=== PATIENT | male | born 1955 | race Two or more races ===

== ENCOUNTER 2023-05-02 22:14 | Inpatient (IN) | payer OTHER ==
[~2023-05-02] VITALS: Ht 167.6 cm; Wt 81.6 kg
[2023-05-02] MEDS ORDERED: METOPROLOL SUCC50 MG PO (22:28)
[2023-05-02] MEDS ORDERED: AMLODIPINE BESY10 MG (22:28)
[2023-05-04] MEDS ORDERED: HYDROCHLOROTH12.5 MG (13:12)
== END 2023-05-09 13:45 | disposition home or self-care (01) | DRG 340 ==
LOC: ER 22:14 → SURG 05-03 09:52
PROVIDERS: Surgery; ADMIT Internal Medicine; ATTEND Internal Medicine
PROC: 0WJG4ZZ Inspection of Peritoneal Cavity, Percutaneous Endoscopic Approach (ICD-10-PCS; 2023-05-03)
PROC: 0D9J0ZZ Drainage of Appendix, Open Approach (ICD-10-PCS; 2023-05-03)
PROC: BW21ZZZ Computerized Tomography (CT Scan) of Abdomen and Pelvis (ICD-10-PCS; 2023-05-03)
PROC: 0DTJ0ZZ Resection of Appendix, Open Approach (ICD-10-PCS; principal; 2023-05-03 18:00)
DX: K35.33 Acute appendicitis with perforation, localized peritonitis, and gangrene, with abscess (principal); I10 Essential (primary) hypertension; Z53.31 Laparoscopic surgical procedure converted to open procedure; D72.828 Other elevated white blood cell count; D72.0 Genetic anomalies of leukocytes